=== PATIENT | female | born 1980 | race Caucasian/White ===

== ENCOUNTER 2017-10-07 16:12 | Emergency (ER) | payer BC ==
[2017-10-07 17:25] LABS: BILIRUBIN,URINE NEGATIVE (NEG); COLOR,URINE YELLOW; GLUCOSE,URINE NEGATIVE (NEG); NITRITE,URINE NEGATIVE (NEG); PROTEIN,URINE NEGATIVE (NEG-TRACE); UROBILINOGEN,URINE 0.2 mg/dL (0.2 mg/dL)
[2017-10-07 17:26] LABS: URINE HCG POC HCG NEGATIVE (Negative)
[2017-10-07 17:30] LABS: CLARITY,URINE CLEAR
[2017-10-07 17:33] LABS: BACTERIA,URINE FEW /HPF (0-FEW); RBC,URINE 0 /HPF (0-2); SQUAMOUS EPITHELIAL CELL,UR MANY /LPF; WBC,URINE OCC /HPF (0-4)
== END 2017-10-07 18:12 | disposition home or self-care (01) ==
LOC: ER 16:12
DX: S39.92XA Unspecified injury of lower back, initial encounter (principal); S29.9XXA Unspecified injury of thorax, initial encounter; R05 Cough; R06.02 Shortness of breath; F41.9 Anxiety disorder, unspecified; J45.909 Unspecified asthma, uncomplicated; K21.9 Gastro-esophageal reflux disease without esophagitis; W10.8XXA Fall (on) (from) other stairs and steps, initial encounter; Y93.89 Activity, other specified; Y92.89 Other specified places as the place of occurrence of the external cause; Y99.8 Other external cause status
CPT/HCPCS: 72100; 72220; 81001; 81025; 99285-25

== ENCOUNTER → 2018-07-16 | Outpatient (CLI) | payer BC ==
[2017-10-07 16:53] VITALS: BP 137/74
[~2018-07-16] MED LIST: ALBU2.5V8 IH; AZIT250T6 PO; ESOM20CA PO; FLUT1DIS IH; IBUP-1007 PO; PRED20TA PO; SERT50TA PO; TOPI25TA52 PO; TRAM1TAB4 PO
--- NOTE | 2018-07-16 11:09 | KCIC ---
Right upper quadrant abdominal ultrasound without comparison for nausea and vomiting, epigastric pain. TECHNIQUE AND FINDINGS: Real-time grayscale and color Doppler evaluation of the right upper quadrant abdominal organs is performed. The liver is enlarged measuring 18.1 cm. There is diffuse fatty infiltration. Within the left lobe of the liver anteriorly, localized to segment 4, there is a vague 2 cm circumscribed subtly hyperechoic focus which may be spurious, as it is seen only vaguely on transverse image #18, and perhaps again on longitudinal image #34. Given its hyperechoic nature, this may reflect a benign hemangioma, however the other etiologies cannot be excluded and further evaluation with three-phase CT scan of the abdomen or contrast enhanced MRI is recommended. There is a 1.3 cm hyperechoic lesion within the anterior aspect the left lobe of liver seen on image #21 which is most likely benign hemangioma. No intra or extra hepatic biliary ductal dilatation is seen. Common bile duct measures 5 mm in thickness. The gallbladder is fluid distended and grossly unremarkable with no pericholecystic fluid, gallbladder wall thickening, or shadowing stones or sludge. No sonographic Bronson sign was elicited. Visualized portions the pancreas are grossly unremarkable. The tail was not well visualized. The IVC is obscured by overlying bowel gas. The aorta is nonaneurysmal. The right kidney measures 10.2 x 3.9 x 4.4 cm and is normal in appearance. Localized interrogation of the periumbilical region was performed, with no discernible abnormality identified. IMPRESSION: 1. 2 cm vague hypoechoic masslike lesion within the anterior aspect the liver near the confluence of the right hand left lobes. This finding is not seen to good advantage and may be spurious on the basis of asymmetric fat distribution. However, a mass lesion such as a benign hemangioma or neoplasm could have this appearance. Further evaluation with three-phase CT scan of the abdomen or contrast enhanced MRI is recommended. 2. Hepatomegaly and hepatic steatosis. 3. No sonographically discernible acute abdominal abnormality. Electronically signed by: Rian De Anda MD (07/16/2018 11:06 AM) [facility]
== END | disposition home or self-care (01) ==
LOC: KCIC US 07:45
PROVIDERS: ATTEND Internal Medicine Gastroenterology
DX: K76.0 Fatty (change of) liver, not elsewhere classified (principal); K76.89 Other specified diseases of liver; K82.8 Other specified diseases of gallbladder
CPT/HCPCS: 76705

== ENCOUNTER 2021-06-07 04:57 | Emergency (ER) | payer BC ==
[~2021-06-07] VITALS: Ht 160 cm; Wt 84.8 kg
[2021-06-07] MEDS ORDERED: ONDANSETRON PF 4 MG/2 ML VIAL. IVP ONE (05:30)
[2021-06-07] MEDS ORDERED: LIDO:MAALOX 1:1 20 ML SINGLE DOSE. SWSW ONE (05:30)
[2021-06-07] MEDS ORDERED: IV NORMAL SALINE 1000ML BAG 1,000 ML IV ONE (05:30)
--- NOTE | 2021-06-07 05:33 | ED.ADGEN ---
Past Medical History Past Medical History: Anxiety, Asthma, GERD, IBS Past Surgical History: Hysterectomy Additional Past Surgical Histo: carpal tunnel, finger trigger point release, foot surgery bilateral Smoking Status: Never Smoker Alcohol Use: None Drug Use: None General Adult EDM: Chief Complaint: ABDOMINAL PAIN HPI: HPI: 41-year-old female who presents to the emergency room complaining of epigastric and right upper quadrant pain since Thursday night. She states she did have this pain briefly about a month ago but then it quickly resolved. She states it has been constant since then. It is worse with eating. She has had associated nausea. She was having some constipation but then had some stools yesterday. She states the stools were [place] in color. She denies any diarrhea or vomiting. She denies any fever. Review of Systems: Review of Systems: Complete ROS is negative unless otherwise documented in HPI Current Medications: Current Medications Medications (Trade) Dose Ordered Sig/Luciano Start Time Stop Time Status Last Admin Dose Admin Famotidine (Pepcid Vial) 20 mg 1X ONCE 06/07/21 09:30 06/07/21 09:31 DC 06/07/21 09:30 20 MG Info (CONTRAST GIVEN -- Rx MONITORING) 1 each PRN DAILY PRN 06/07/21 06:45 06/07/21 09:51 DC Iohexol (Omnipaque 240 Mg/ml) 30 ml 1X ONCE 06/07/21 06:30 06/07/21 06:33 DC 06/07/21 06:45 30 ML Iohexol (Omnipaque 300 Mg/ml) 75 ml 1X ONCE 06/07/21 06:30 06/07/21 06:33 DC 06/07/21 06:45 75 ML Multi-Ingredient Mouthwash/Gargle (Gi Cocktail) 20 ml 1X ONCE 06/07/21 05:30 06/07/21 05:31 DC 06/07/21 05:33 20 ML Ondansetron HCl (Zofran) 4 mg 1X ONCE 06/07/21 05:30 06/07/21 05:31 DC 06/07/21 05:33 4 MG Sodium Chloride 1,000 ml @ 1,000 mls/hr 1X ONCE 06/07/21 05:30 06/07/21 06:29 DC 06/07/21 05:33 1,000 MLS/HR Allergies: Allergies: Allergies Coded Allergies Type Severity Reaction Last Updated Verified No Known Drug Allergies 06/07/21 No Physical Exam: PE: General: Awake, alert, NAD. Well Nourished, well hydrated. Cooperative HEENT: Atraumatic, EOMI, PERRL, airway patent, moist oral mucosa Neck: Supple, trachea midline Respiratory: CTA bilaterally, normal effort, no wheezing/crackles CV: RRR, no murmur, cap refill <2 GI: Soft, nondistended, epigastric and right upper quadrant tenderness, no masses MSK: No obvious deformities Skin: Warm, dry, intact Neuro: A&O x3, speech NL, sensory and motor grossly intact, no focal deficits Psych: Normal affect, normal mood, not suicidal or homicidal Current Patient Data: Labs: Laboratory Tests Test 06/07/21 05:10 06/07/21 05:20 Urine Collection Type Unknown Urine Color Yellow Urine Clarity Clear Urine pH 7.0 (<5.0-8.0) Urine Specific [place] 1.020 (1.000-1.030) Urine Protein Negative mg/dL (NEG-TRACE) Urine Glucose (UA) Negative mg/dL (NEG) Urine Ketones (Stick) Negative mg/dL (NEG) Urine Blood Negative (NEG) Urine Nitrite Negative (NEG) Urine Bilirubin Negative (NEG) Urine Urobilinogen Dipstick 0.2 mg/dL (0.2 mg/dL) Urine Leukocyte Esterase Negative (NEG) Urine RBC 0 /HPF (0-2) Urine WBC Occ /HPF (0-4) Urine Squamous Epithelial Cells Few /LPF Urine Amorphous Sediment Present /HPF Urine Bacteria Few /HPF (0-FEW) White Blood Count 10.7 x10^3/uL (4.0-11.0) Red Blood Count 4.80 x10^6/uL (3.50-5.40) Hemoglobin 12.6 g/dL (12.0-15.5) Hematocrit 40.2 % (36.0-47.0) Mean Corpuscular Volume 84 fL (79-100) Mean Corpuscular Hemoglobin 26 pg (25-35) Mean Corpuscular Hemoglobin Concent 31 g/dL (31-37) Red Cell Distribution Width 14.6 % (11.5-14.5) H Platelet Count 253 x10^3/uL (140-400) Neutrophils (%) (Auto) 57 % (31-73) Lymphocytes (%) (Auto) 34 % (24-48) Monocytes (%) (Auto) 6 % (0-9) Eosinophils (%) (Auto) 2 % (0-3) Basophils (%) (Auto) 1 % (0-3) Neutrophils # (Auto) 6.1 x10^3/uL (1.8-7.7) Lymphocytes # (Auto) 3.6 x10^3/uL (1.0-4.8) Monocytes # (Auto) 0.7 x10^3/uL (0.0-1.1) Eosinophils # (Auto) 0.2 x10^3/uL (0.0-0.7) Basophils # (Auto) 0.0 x10^3/uL (0.0-0.2) Urine Test Negative (NEG) Sodium Level 139 mmol/L (136-145) Potassium Level 3.5 mmol/L (3.5-5.1) Chloride Level 103 mmol/L (98-107) Carbon Dioxide Level 28 mmol/L (21-32) Anion Gap 8 (6-14) Blood Urea Nitrogen 14 mg/dL (7-20) Creatinine 1.0 mg/dL (0.6-1.0) Estimated GFR (Cockcroft-Gault) 60.5 BUN/Creatinine Ratio 14 (6-20) Glucose Level 109 mg/dL (70-99) H Calcium Level 8.8 mg/dL (8.5-10.1) Total Bilirubin 0.3 mg/dL (0.2-1.0) Aspartate Amino Transferase (AST) 21 U/L (15-37) Alanine Aminotransferase (ALT) 38 U/L (14-59) Alkaline Phosphatase 80 U/L (46-116) Total Protein 7.7 g/dL (6.4-8.2) Albumin 3.7 g/dL (3.4-5.0) Albumin/Globulin Ratio 0.9 (1.0-1.7) L Lipase 133 U/L (73-393) Laboratory Tests 06/07/21 05:20 Laboratory Tests 06/07/21 05:20 Vital Signs: Vital Signs Date Time Temp Pulse Resp B/P (MAP) Pulse Ox O2 Delivery O2 Flow Rate FiO2 06/07/21 08:37 66 118/71 (87) Room Air 06/07/21 06:36 99 06/07/21 05:08 98.1 20 98.1 EKG: EKG: [] Heart Score: C/O Chest Pain: N/A Risk Factors: Risk Factors: DM, Current or recent (<one month) smoker, HTN, HLP, family history of CAD, obesity. Risk Scores: Score 0 - 3: 2.5% MACE over next 6 weeks - Discharge Home Score 4 - 6: 20.3% MACE over next 6 weeks - Admit for Clinical Observation Score 7 - 10: 72.7% MACE over next 6 weeks - Early Invasive Strategies Radiology/Procedures: Radiology/Procedures: IMAGING REPORT Signed PATIENT: AUSTIN ALMONTEACCOUNT: [id number] : 1980 LOCATION: ER AGE: 41 SEX: F EXAM STATUS: REG ER ORD. PHYSICIAN: JUAN ALCARAZ MD REASON: abd pain, vomiting PROCEDURE: CT ABD PELV W/ORAL&IV CONTRAST CT abdomen and pelvis with contrast PQRS statement: CT scans at this facility use dose reduction including either automated exposure control, iterative reconstructions, and /or weight based radiation dosing via mA and kV modification when appropriate to reduce radiation dose to as low as reasonably achievable. Contrast: 75 mL Omnipaque 300 intravenous contrast. HISTORY: Abdominal pain. Vomiting. Abdomen findings: Shallow disc bulge L5-S1. Mild atelectasis lung bases. Hypodense liver likely fatty. Prominence of the liver may indicate hepatomegaly right hepatic lobe has a length of 20 cm. Splenomegaly spleen has a craniocaudal length of 15 cm. Kidneys, adrenal glands, pancreas, gallbladder unremarkable. There are mild enlarged lymph nodes at the dolores hepatis largest measuring 1.5 cm. No bowel obstruction or inflammation. Appendix is normal. No abdominal fluid. Pelvis findings: Retroverted uterus. Ovaries, bladder, rectum and bones are unremarkable. No pelvic fluid or adenopathy. IMPRESSION: 1. No acute process. Appendix is normal. 2. Mild dolores hepatis adenopathy with lymph nodes measuring up to 1.5 cm in size. 3. Hepatosplenomegaly. There is hypodensity of the liver which may indicate steatosis. Electronically signed by: Tamie Garcia MD (06/07/2021 7:07 AM) [facility] DICTATED and SIGNED BY: TAMIE GARCIA MD DATE: 06/07/21700 Course & Med Decision Making: Course & Med Decision Making Pertinent Labs and Imaging studies reviewed. (See chart for details) Patient is a 41-year-old female presents to the emergency room complaining of epigastric and right upper quadrant pain with associated nausea. Abdominal lab work and CT abdomen pelvis were ordered. Patient was given GI cocktail, and fluid bolus, Zofran. Patient discussed with oncoming physician who will assume care. I received signout at shift change from Dr. Alcaraz. Patient is a 41-year-old female who presents the ED with complaints of epigastric " burning," nonr adiating abdominal pain with associated nausea, has been told she has gallstones and is concerned for her gallbladder. Reports history of EGD and colonoscopy with [facility], Dr. Joe 4 years ago and was diagnosed with IBS and gastritis. Takes Nexium daily. Has been told she has gallstones. Patient was treated with GI cocktail and Zofran. On my evaluation I woke patient up, she is resting comfortably. Reports symptoms resolved after GI cocktail. Reports regular bowel movements with no associated blood, melena or hematochezia. CT imaging consistent with hepatosplenomegaly and a normal gallbladder-no cholelithiasis. On abdominal exam patient has epigastric discomfort, no Bronson sign, no rigidity or guarding. Patient is hemodynamically stable, afebrile. Is tolerating oral intake. Will discharge home with Pepcid and Zofran ODT. Will discharge home with strict ED return precautions were given for intractable nausea or vomiting, worsening pain, GI bleeding or fever. Encouraged urgent outpatient follow-up with PMD for reevaluation and consider GI for endoscopy. Life-threatening proce sses were considered but are low suspicion at this time, given history, physical exam and ED workup. Pt was educated on all prescription medications and adverse effects. All patient's questions were answered and pt was stable at time of discharge. Life/limb-threatening differential includes but is not limited to, aortic dissection, aortic aneurysm, acute coronary syndrome, surgical abdomen (appe ndicitis, cholecystitis, ischemic bowel, strangulated hernia, etc), bowel obstruction or volvulus, bladder outlet obstruction, gastrointestinal bleeding, inflammatory bowel disease, peptic ulcer disease, ACS/CAD, sepsis, diverticular disease, ureterolithiasis, nephrolithiasis, ovarian or testicular torsion, ectopic , vaginal hemorrhage, or genitourinary infection. I have spoken with the patient and/or caregivers. I explained the patient's condition, diagnoses and treatment plan based on the information available to me at this time. I have answered the patient and/or caregiver's questions and addressed any concerns. The patient and/or caregivers have a good understanding of patient's diagnosis, condition and treatment plan as can be expected at this point. Vital signs have been stable. Patient's condition is stable and appropriate for discharge from the emergency department. Patient will pursue further outpatient evaluation with primary care physician or other designated or consulting physician as outlined in the discharge instructions. The patient and/or caregivers are agreeable to this plan of care and follow-up instructions have been explained in detail. The patient and/or caregivers have received these instructions in written form and have expressed an understanding of the discharge instructions. The patient and/or caregivers are aware that any significant change of condition or worsening of symptoms should prompt immediate return to this or the closest emergency department or call to [phone]. Cathi Disclaimer: Cathi Disclaimer: This electronic medical record was generated, in whole or in part, using a voice recognition dictation system. Departure Departure Impression: Primary Impression: Abdominal pain Additional Impression: Hepatosplenomegaly Disposition: 01 HOME / SELF CARE / HOMELESS Condition: STABLE Referrals: HELGA PASCUAL (PCP) follow up in 1- 2 days Patient Instructions: Abdominal Pain Additional Instructions: FOLLOW UP WITH GASTROENTEROLOGY: FOR DEFINITIVE MANAGEMENT of epigastric valerie n/gastritis [facility] [address] [place] [address] EMERGENCY DEPARTMENT GENERAL DISCHARGE INSTRUCTIONS Thank you for coming to [facility] Emergency Department (ED) today and trusting us with you care. We trust that you had a positive experience in our Emergency Department. If you wish to speak to the department management, you may call the Director at [phone]. YOUR FOLLOW UP INSTRUCTIONS ARE FOLLOWS: 1. Do you have a private Doctor? If you do not have a private doctor, please ask for a resource list of physicians or clinics that may be able to assist you with follow up care. 2. The Emergency Physicain has interpreted your x-rays. The X-Ray specialist will also review them. If there is a change in the findings, you will be notified in 48 hours when at all possible. 3. A lab test or culture has been done, your results will be reviewed and you will be notified if you need a change in treatment. ADDITIONAL INSTRUCTIONS AND INFORMATION: 1. Your care today has been supervised by a physician who is specially trained in emergency care. Many problems require more than one evaluation for a complete diagnosis and treatment. We recommend that you schedule your follow up appointment as recommended to ensure complete treatment of you illness or injury. If you are unable to obtain follow up care and continue to have a problem, or if your condition worsens, we recommend that you return to the ED. 2. We are not able to safely determine your condition over the phone nor are we able to give sound medical advice over the phone. For these safety reasons, if you call for medical advice we will ask you to come to the ED for further evaluation. 3. If you have any questions regarding these discharge instructions please call the ED at [phone]. SAFETY INFORMATION: In the interest of safety, wellness, and injury prevention; we encourage you to wear your sealbelt, if you smoke; quite smoking, and we encourage family to use a protective helmet for bicycling and other sporting events that present an increased risk for head injury. IF YOUR SYMPTOMS WORSEN OR NEW SYMPTOMS DEVELOP, OR YOU HAVE CONCERNS ABOUT YOUR CONDITION; OR IF YOUR CONDITION WORSENS WHILE YOU ARE WAITING FOR YOUR FOLLOW UP APPOINTMENT; EITHER CONTACT YOUR PRIMARY CARE DOCTOR, THE PHYSICIAN WHOSE NAME AND NUMBER YOU WERE GIVEN, OR RETURN TO THE ED IMMEDIATELY. Scripts Ondansetron (ONDANSETRON ODT) 4 Mg Tab.rapdis 1 TAB PO PRN Q6-8HRS, #20 TAB Prov: MERLENE MEMBRENO DO 06/07/21 Famotidine (PEPCID) 20 Mg Tablet 20 MG PO HS for 30 Days, #30 TAB Prov: MERLENE MEMBRENO DO 06/07/21 Problem Qualifiers JUAN ALCARAZ MD Jun 07, 2021 05:33 MERLENE MEMBRENO DO Jun 07, 2021 08:40
[2021-06-07 05:45] LABS: BASO % 1 % (0-3); EOS # 0.2 x10^3/uL (0.0-0.7); EOS % 2 % (0-3); HEMATOCRIT 40.2 % (36.0-47.0); HEMOGLOBIN 12.6 g/dL (12.0-15.5); LYMPH # 3.6 x10^3/uL (1.0-4.8); LYMPH % 34 % (24-48); MEAN CORPUSCULAR HEMOGLOBIN 26 pg (25-35); MEAN CORPUSCULAR HGB CONC 31 g/dL (31-37); MEAN CORPUSCULAR VOLUME 84 fL (79-100); MONO # 0.7 x10^3/uL (0.0-1.1); MONO % 6 % (0-9); NEUT # 6.1 x10^3/uL (1.8-7.7); NEUT % 57 % (31-73); PLATELET COUNT 253 x10^3/uL (140-400); RED CELL DISTRIBUTION WIDTH 14.6 % (11.5-14.5); WHITE BLOOD COUNT 10.7 x10^3/uL (4.0-11.0)
[2021-06-07 05:51] LABS: CALCIUM 8.8 mg/dL (8.5-10.1); GFR 60.5; POTASSIUM 3.5 mmol/L (3.5-5.1)
[2021-06-07 05:53] LABS: U PREG PATIENT NEGATIVE (NEG)
[2021-06-07 05:54] LABS: BILIRUBIN,URINE NEGATIVE (NEG); CLARITY,URINE CLEAR; COLOR,URINE YELLOW; NITRITE,URINE NEGATIVE (NEG); PROTEIN,URINE NEGATIVE (NEG-TRACE); UROBILINOGEN,URINE 0.2 mg/dL (0.2 mg/dL)
[2021-06-07 05:55] LABS: AMORPHOUS SEDIMENT,UR PRESENT /HPF; BACTERIA,URINE FEW /HPF (0-FEW); RBC,URINE 0 /HPF (0-2); WBC,URINE OCC /HPF (0-4)
[2021-06-07 05:57] LABS: ALBUMIN 3.7 g/dL (3.4-5.0); ALBUMIN/GLOBULIN RATIO 0.9 (1.0-1.7); TOTAL BILIRUBIN 0.3 mg/dL (0.2-1.0); TOTAL PROTEIN 7.7 g/dL (6.4-8.2)
[2021-06-07] MEDS ORDERED: IOHEXOL 240 MG/ML 50ML VIAL. PO ONE (06:30)
[2021-06-07] MEDS ORDERED: IOHEXOL 300 MG/ML 100ML VIAL. IV ONE (06:30)
[2021-06-07] MEDS ORDERED: CONTRAST GIVEN. MC PRN (06:45)
--- NOTE | 2021-06-07 07:10 | RAD ---
CT abdomen and pelvis with contrast PQRS statement: CT scans at this facility use dose reduction including either automated exposure cont rol, iterative reconstructions, and /or weight based radiation dosing via mA and kV modification when appropriate to reduce radiation dose to as low as reasonably achievable. Contrast: 75 mL Omnipaque 300 intravenous contrast. HISTORY: Abdominal pain. Vomiting. Abdomen findings: Shallow disc bulge L5-S1. Mild atelectasis lung bases. Hypodense liver likely fatty . Prominence of the liver may indicate hepatomegaly right hepatic lobe has a length of 20 cm. Splenom egaly spleen has a craniocaudal length of 15 cm. Kidneys, adrenal glands, pancreas, gallbladder unrem arkable. There are mild enlarged lymph nodes at the dolores hepatis largest measuring 1.5 cm. No bowel obstruction or inflammation. Appendix is normal. No abdominal fluid. Pelvis findings: Retroverted uterus. Ovaries, bladder, rectum and bones are unremarkable. No pelvic f luid or adenopathy. IMPRESSION: 1. No acute process. Appendix is normal. 2. Mild dolores hepatis adenopathy with lymph nodes measuring up to 1.5 cm in size. 3. Hepatosplenomegaly. There is hypodensity of the liver which may indicate steatosis. Electronically signed by: Dash Garcia MD (06/07/2021 7:07 AM) [facility]
[2021-06-07 08:37] VITALS: BP 118/71
[2021-06-07] MEDS ORDERED: FAMOTIDINE 20 MG/2 ML VIAL IVP ONE (09:30)
[2021-06-07] MEDS ORDERED: FAMO-63 PO (09:40)
[2021-06-07] MEDS ORDERED: ONDA4TAB12 PO (09:40)
== END 2021-06-07 09:50 | disposition home or self-care (01) ==
LOC: ER 04:57
DX: R10.11 Right upper quadrant pain (principal); R16.2 Hepatomegaly with splenomegaly, not elsewhere classified; K21.9 Gastro-esophageal reflux disease without esophagitis; J45.909 Unspecified asthma, uncomplicated; K58.9 Irritable bowel syndrome, unspecified
CPT/HCPCS: 36415; 74177; 80053; 81001; 81025; 83690; 85025; 96361; 96374; 96375; 99285; J2405; J3490; J7030; Q9966; Q9967